=== PATIENT | male | born 1980 | race Caucasian/White ===

== ENCOUNTER 2017-06-26 17:37 | Emergency (ER) | payer BC, OTHER ==
[~2017-06-26] VITALS: Ht 190.5 cm; Wt 86.0 kg
[2017-06-26 17:43] VITALS: BP 106/90
[2017-06-26] MEDS ORDERED: SODIUM CHLORIDE 0.9% 1,000 ML IV ONE (17:47)
[2017-06-26] MEDS ORDERED: SODIUM CHLORIDE FLUSH 10ML SYR IVF ONE (18:00)
[2017-06-26 18:21] LABS: HEMATOCRIT 36.2 % (39.2-51.8); HEMOGLOBIN 11.7 g/dL (13.7-18.0); WHITE BLOOD COUNT 3.7 x10^3/uL (3.4-10)
[2017-06-26 18:27] LABS: ASPARTATE AMINO TRANSFERASE 80 U/L (15-37); BLOOD UREA NITROGEN 6 mg/dL (7-18)
[2017-06-26 18:45] LABS: DIFF TOTAL CELLS COUNTED 100 CELL DIFF
[2017-06-26 18:47] LABS: VERIFY COUNTS? YES
[2017-06-26 18:48] LABS: ANISOCYTOSIS 1+; OVALOCYTES 1+; POIKILOCYTOSIS 1+; ROULEAUX 1+; TARGET CELLS 1+
[2017-06-26] MEDS ORDERED: METOPROLOL 1 MG/ML, 5ML IVPush ONE (19:00)
== END 2017-06-26 20:45 | disposition home or self-care (01) ==
LOC: ED 20:39
DX: R53.1 Weakness (principal); F10.10 Alcohol abuse, uncomplicated; I10 Essential (primary) hypertension
CPT/HCPCS: 36415; 70450; 80053; 80307; 85025; 93005; 99285; G0479

== ENCOUNTER 2018-09-04 18:48 | Emergency (ER) | payer MEDICAID ==
[~2018-09-04] VITALS: Ht 190.5 cm; Wt 80.4 kg
[2018-09-04 19:54] LABS: ALANINE AMINOTRANSFERASE 45 U/L (12-78); ANION GAP 10 mmol/L (5-15); CALCIUM 8.4 mg/dL (8.5-10.1); CHLORIDE 104 mmol/L (98-107)
[2018-09-04 19:57] LABS: ALKALINE PHOSPHATASE 151 U/L (45-117); BILIRUBIN,TOTAL 5.7 mg/dL (0.2-1.0); TOTAL PROTEIN 7.9 g/dL (6.4-8.2)
[2018-09-04 20:11] LABS: MD YES; MEAN CORPUSCULAR HEMOGLOBIN 34.2 pg (27.5-34.5); MEAN CORPUSCULAR HGB CONC 34.1 g/dL (33.2-36.2); MEAN CORPUSCULAR VOLUME 100.3 fL (81-97); MEAN PLATELET VOLUME 8.8 fL (7.4-10.4); PLATELET COUNT 58 x10^3/uL (130-400); RED BLOOD COUNT 3.23 x10^6/uL (4.38-5.82); RED CELL DISTRIBUTION WIDTH 18.6 % (9.4-14.8)
[2018-09-04] MEDS ORDERED: LISI-167 PO (20:27)
[2018-09-04] MEDS ORDERED: FURO-93 PO (20:27)
[2018-09-04] MEDS ORDERED: LEVE750T37 PO (20:27)
[2018-09-04] MEDS ORDERED: AMLO2.5T3 PO (20:27)
[2018-09-04] MEDS ORDERED: SPIR25TA5 PO (20:27)
[2018-09-04 20:43] LABS: CULTURE INDICATED? YES; MICROSCOPIC INDICATED
[2018-09-04 20:52] LABS: INTERNATIONAL NORMALIZED RATIO 1.48 (0.93-1.1); PROTHROMBIN TIME 15.5 Seconds (9.6-11.5)
[2018-09-04 20:54] LABS: BASOS#(MANUAL) 0.03 x10^3/uL (0-0.1); BASOS% (MANUAL) 1 % (0-1); EOS#(MANUAL) 0.03 x10^3/uL (0.0-0.4); EOS% (MANUAL) 1 % (1-7); LYMPH#(MANUAL) 0.78 x10^3/uL (1-3.4); LYMPHS% (MANUAL) 30 % (22-44); MONOS#(MANUAL) 0.29 x10^3/uL (0.3-2.7); MONOS% (MANUAL) 11 % (2-9); SEG#(MANUAL) 1.48 x10^3/uL (1.8-6.8); SEGS% (MANUAL) 57 % (42-75)
[2018-09-04 20:57] LABS: POLYCHROMASIA 1+
[2018-09-04 20:58] LABS: OVALOCYTES 1+
[2018-09-04 20:59] LABS: SCHISTOCYTES 1+
[2018-09-04 21:02] LABS: <PLATELET ESTIMATE> DECREASED; <PLT MORPHOLOGY> NORMAL PLT MORPH
[2018-09-04 21:27] VITALS: BP 148/92
== END 2018-09-04 21:35 | disposition home or self-care (01) ==
LOC: ED 21:10
DX: K80.20 Calculus of gallbladder without cholecystitis without obstruction (principal); R10.11 Right upper quadrant pain; I10 Essential (primary) hypertension; Z86.73 Personal history of transient ischemic attack (TIA), and cerebral infarction without residual deficits
CPT/HCPCS: 36415; 76700; 80053; 81001; 83690; 85025; 85610; 85730; 87086; 99284

== ENCOUNTER 2018-11-15 05:35 | Inpatient (IN) | payer MEDICAID, OTHER ==
[~2018-11-15] VITALS: Ht 190.5 cm; Wt 88.1 kg
[~2018-11-15 05:35] MED LIST: AMLO2.5T5 PO; FURO-93 PO; LEVE750T37 PO; LISI-167 PO; SPIR25TA5 PO
[2018-11-15] MEDS ORDERED: LIDOCAINE-MPF 1%, 5ML ONE ×3 (06:16→06:37)
[2018-11-15 06:26] LABS: MEAN CORPUSCULAR HEMOGLOBIN 34.8 pg (27.5-34.5); MEAN CORPUSCULAR HGB CONC 33.5 g/dL (33.2-36.2); MEAN CORPUSCULAR VOLUME 104.1 fL (81-97); RED BLOOD COUNT 3.36 x10^6/uL (4.38-5.82); RED CELL DISTRIBUTION WIDTH 19.9 % (9.4-14.8)
[2018-11-15] MEDS ORDERED: LIDOCAINE-MPF 1%, 5ML INFIL ONE (06:30)
[2018-11-15 06:35] LABS: ALBUMIN 2.8 g/dL (3.4-5.0); ANION GAP 7 mmol/L (5-15); CALCIUM 8.5 mg/dL (8.5-10.1); CHLORIDE 111 mmol/L (98-107); INTERNATIONAL NORMALIZED RATIO 1.41 (0.93-1.1); PROTHROMBIN TIME 14.7 Seconds (9.6-11.5)
[2018-11-15 06:38] LABS: ALANINE AMINOTRANSFERASE 38 U/L (12-78); ALKALINE PHOSPHATASE 160 U/L (45-117); BILIRUBIN,TOTAL 5.6 mg/dL (0.2-1.0); CREATININE 0.96 mg/dL (0.7-1.3); TOTAL PROTEIN 7.6 g/dL (6.4-8.2)
[2018-11-15 06:40] LABS: BASOPHILS # (AUTO) 0.02 x10^3/uL (0-0.1); BASOPHILS % (AUTO) 1 % (0-1); EOSINOPHILS # (AUTO) 0.07 x10^3/uL (0-0.4); EOSINOPHILS % (AUTO) 2 % (1-7); LYMPHOCYTES # (AUTO) 0.92 x10^3/uL (1-3.4); LYMPHOCYTES % (AUTO) 28 % (22-44); MD SCAN; MEAN PLATELET VOLUME 8.2 fL (7.4-10.4); MONOCYTES # (AUTO) 0.38 x10^3/uL (0.2-0.8); MONOCYTES % (AUTO) 12 % (2-9); NEUTROPHILS # (AUTO) 1.91 x10^3/uL (1.8-6.8); NEUTROPHILS % (AUTO) 58 % (42-75); PLATELET COUNT 91 x10^3/uL (130-400)
[2018-11-15 08:53] LABS: BILIRUBIN, DIRECT 2.9 mg/dL (0.1-0.2)
[2018-11-15 08:54] LABS: BILIRUBIN,INDIRECT 2.4 mg/dL (0.0-2.0); BILIRUBIN,TOTAL 5.3 mg/dL (0.2-1.0)
[2018-11-15] MEDS ORDERED: VITAMIN D PO (08:59)
[2018-11-15] MEDS ORDERED: LEVETIRACETAM 100 MG/ML ORAL SOL PO SCH (09:00)
[2018-11-15] MEDS ORDERED: LABETALOL 5MG/ML, 20ML IVPush PRN (09:00)
[2018-11-15] MEDS ORDERED: hydrALAzine 20 MG/ML, 1ML IVPush PRN (09:00)
[2018-11-15] MEDS ORDERED: KETOROLAC 30 MG/1 ML IV PRN (09:00)
[2018-11-15] MEDS ORDERED: ACETAMINOPHEN 325 MG TABLET PO PRN (09:00)
[2018-11-15] MEDS ORDERED: VITAMIN K (09:01)
[2018-11-15] MEDS ORDERED: PRAZ2CAP2 PO (09:02)
[2018-11-15 09:34] VITALS: BP 112/77
[2018-11-15 10:04] LABS: AMPHETAMINE SCREEN, URINE Negative (Negative); BARBITURATE SCREEN, URINE Negative (Negative); BENZODIAZEPINE SCREEN, URINE Negative (Negative); CANNABINOID SCREEN, URINE Negative (Negative); COCAINE SCREEN, URINE Negative (Negative); METHADONE SCREEN, URINE Negative (Negative); OPIATE SCREEN, URINE Negative (Negative)
[2018-11-15] MEDS ORDERED: LORazepam 2 MG/ML, 1ML ONE (10:26)
[2018-11-15] MEDS: LISINOPRIL 10 MG TABLET PO SCH (10:29)
[2018-11-15] MEDS ORDERED: ERGOCALCIFEROL 50,000 UNIT CAPSULE PO SCH (10:30)
[2018-11-15] MEDS ORDERED: LORazepam 2 MG/ML, 1ML IVPush ONE ×2 (10:30)
[2018-11-15] MEDS ORDERED: LIDO700A42 TP (10:43)
[2018-11-15] MEDS ORDERED: FOLI-17 PO (10:43)
[2018-11-15] MEDS ORDERED: LEVE750T8 PO (10:43)
[2018-11-15] MEDS ORDERED: LACT10SO28 PO (10:43)
[2018-11-15] MEDS ORDERED: PROP10TA51 PO (10:44)
[2018-11-15] MEDS ORDERED: ONDA4TAB13 SL (10:45)
[2018-11-15] MEDS ORDERED: OMEP-110 PO (10:46)
[2018-11-15] MEDS ORDERED: MULT-658 PO (10:47)
[2018-11-15] MEDS: AMLODIPINE 2.5 MG TABLET PO SCH (12:16)
[2018-11-15] MEDS: SODIUM CHLORIDE 0.9% 1,000 ML IV SCH (12:16)
[2018-11-15] MEDS: THIAMINE 100MG TABLET PO SCH (13:00)
[2018-11-15] MEDS ORDERED: CEFTRIAXONE PMX 2GM/50ML 50 ML IV SCH (13:30)
[2018-11-15] MEDS: METRONIDAZOLE PMX 500MG/100ML 100 ML IV SCH (14:08)
[2018-11-15 14:38] VITALS: BP 115/78
[2018-11-15] MEDS: HYDROcodone/APAP 5/325 TABLET PO PRN (16:20)
[2018-11-15] MEDS: AZTREONAM 2 GM in DEXTROSE 5% 100 ML IV SCH ×2 (18:09→23:58)
[2018-11-15] MEDS ORDERED: VANCOMYCIN PER PHARMACY MC PRN (19:00)
[2018-11-15] MEDS ORDERED: PHARMACOKINETIC CONSULTATION MC ONE (19:00)
[2018-11-15] MEDS ORDERED: PHARMACOKINETIC MONITORING MC PRN (19:00)
[2018-11-15] MEDS: VANCOMYCIN 1,600 MG in SODIUM CHLORIDE 0.9% 250 ML IV SCH (20:09)
[2018-11-15] MEDS: KETOROLAC 30 MG/1 ML IV PRN (20:10)
[2018-11-15] MEDS: morphine SULFATE 10 MG/ML, 1ML IVPush PRN ×2 (20:10→23:57)
[2018-11-15 20:12] VITALS: BP 124/78
[2018-11-15] MEDS: LEVETIRACETAM 100 MG/ML ORAL SOL PO SCH (23:21)
[2018-11-15] MEDS: PRAZOSIN 2 MG CAPSULE PO SCH (23:23)
[2018-11-16] MEDS: METRONIDAZOLE PMX 500MG/100ML 100 ML IV SCH ×2 (01:25→12:54)
[2018-11-16] MEDS: SODIUM CHLORIDE 0.9% 1,000 ML IV SCH ×3 (01:26→22:21)
[2018-11-16 02:20] VITALS: BP 117/72
[2018-11-16] MEDS: KETOROLAC 30 MG/1 ML IV PRN ×3 (04:15→22:32)
[2018-11-16] MEDS: morphine SULFATE 10 MG/ML, 1ML IVPush PRN ×4 (04:15→21:16)
[2018-11-16 04:38] LABS: MEAN CORPUSCULAR HEMOGLOBIN 35.3 pg (27.5-34.5); MEAN CORPUSCULAR HGB CONC 34.5 g/dL (33.2-36.2); MEAN CORPUSCULAR VOLUME 102.4 fL (81-97); MEAN PLATELET VOLUME 7.9 fL (7.4-10.4); PLATELET COUNT 65 x10^3/uL (130-400); RED BLOOD COUNT 2.79 x10^6/uL (4.38-5.82); RED CELL DISTRIBUTION WIDTH 20.7 % (9.4-14.8)
[2018-11-16 04:44] LABS: ALANINE AMINOTRANSFERASE 30 U/L (12-78); ALBUMIN 2.4 g/dL (3.4-5.0); ANION GAP 7 mmol/L (5-15); CALCIUM 7.7 mg/dL (8.5-10.1); CHLORIDE 111 mmol/L (98-107); CREATININE 0.76 mg/dL (0.7-1.3)
[2018-11-16 05:11] LABS: ALKALINE PHOSPHATASE 100 U/L (45-117); BILIRUBIN,TOTAL 5.3 mg/dL (0.2-1.0); TOTAL PROTEIN 6.2 g/dL (6.4-8.2)
[2018-11-16 05:40] LABS: BASOPHILS # (AUTO) 0.03 x10^3/uL (0-0.1); BASOPHILS % (AUTO) 1 % (0-1); EOSINOPHILS # (AUTO) 0.05 x10^3/uL (0-0.4); EOSINOPHILS % (AUTO) 2 % (1-7); LYMPHOCYTES # (AUTO) 0.65 x10^3/uL (1-3.4); LYMPHOCYTES % (AUTO) 31 % (22-44); MD SCAN; MONOCYTES # (AUTO) 0.32 x10^3/uL (0.2-0.8); MONOCYTES % (AUTO) 15 % (2-9); NEUTROPHILS # (AUTO) 1.08 x10^3/uL (1.8-6.8); NEUTROPHILS % (AUTO) 51 % (42-75)
[2018-11-16 07:13] VITALS: BP 123/74
[2018-11-16] MEDS: LEVETIRACETAM 100 MG/ML ORAL SOL PO SCH ×2 (08:20→22:33)
[2018-11-16] MEDS: LISINOPRIL 10 MG TABLET PO SCH (08:20)
[2018-11-16] MEDS: THIAMINE 100MG TABLET PO SCH (08:20)
[2018-11-16] MEDS: AMLODIPINE 2.5 MG TABLET PO SCH (08:20)
[2018-11-16] MEDS: AZTREONAM 2 GM in DEXTROSE 5% 100 ML IV SCH (08:20)
[2018-11-16] MEDS: FOLIC ACID 1 MG TABLET PO SCH (08:21)
[2018-11-16 09:28] LABS: C-REACTIVE PROTEIN, QUANT 0.03 mg/dL (0.02-0.49)
[2018-11-16] MEDS: VANCOMYCIN 1,600 MG in SODIUM CHLORIDE 0.9% 250 ML IV SCH (09:28)
[2018-11-16 09:29] LABS: HCT (SEDRATE) 28.6 % (39.2-51.8)
[2018-11-16] MEDS ORDERED: LORazepam 2 MG/ML, 1ML IVPush ONE (10:00)
[2018-11-16] MEDS ORDERED: GADOBUTROL 7.5 MMOL/7.5 ML PFS ONE (11:43)
[2018-11-16] MEDS: ONDANSETRON 2MG/ML, 2ML IVPush PRN (12:14)
[2018-11-16] MEDS: HYDROcodone/APAP 5/325 TABLET PO PRN (14:10)
[2018-11-16 14:44] VITALS: BP 109/64
[2018-11-16] MEDS ORDERED: LORazepam 2 MG/ML, 1ML ONE (15:41)
[2018-11-16 15:44] VITALS: BP 153/97
[2018-11-16] MEDS ORDERED: LORazepam 2 MG/ML, 1ML IVPush PRN ×2 (16:00)
[2018-11-16] MEDS: CLINDAMYCIN 300 MG CAPSULE PO SCH ×2 (16:05→21:17)
[2018-11-16 20:30] VITALS: BP 108/78
[2018-11-16] MEDS: PRAZOSIN 2 MG CAPSULE PO SCH (21:16)
[2018-11-17 00:34] VITALS: BP 102/58
[2018-11-17] MEDS: morphine SULFATE 10 MG/ML, 1ML IVPush PRN ×2 (05:02→10:49)
[2018-11-17] MEDS: CLINDAMYCIN 300 MG CAPSULE PO SCH ×4 (05:02→21:04)
[2018-11-17 06:57] VITALS: BP 117/76
[2018-11-17 08:05] LABS: MEAN CORPUSCULAR HEMOGLOBIN 34.2 pg (27.5-34.5); MEAN CORPUSCULAR VOLUME 103.7 fL (81-97); RED BLOOD COUNT 2.74 x10^6/uL (4.38-5.82); RED CELL DISTRIBUTION WIDTH 20.5 % (9.4-14.8)
[2018-11-17 08:11] LABS: ANION GAP 8 mmol/L (5-15); CALCIUM 7.7 mg/dL (8.5-10.1); CHLORIDE 114 mmol/L (98-107); CREATININE 0.83 mg/dL (0.7-1.3)
[2018-11-17] MEDS: THIAMINE 100MG TABLET PO SCH (08:11)
[2018-11-17] MEDS: AMLODIPINE 2.5 MG TABLET PO SCH (08:11)
[2018-11-17] MEDS: LISINOPRIL 10 MG TABLET PO SCH (08:11)
[2018-11-17] MEDS: HYDROcodone/APAP 5/325 TABLET PO PRN ×3 (08:11→20:29)
[2018-11-17] MEDS: FOLIC ACID 1 MG TABLET PO SCH (08:11)
[2018-11-17 08:12] LABS: VANCOMYCIN,TROUGH 4.5 mcg/mL (5.0-10.0)
[2018-11-17] MEDS: LEVETIRACETAM 100 MG/ML ORAL SOL PO SCH ×2 (08:12→21:03)
[2018-11-17 09:25] LABS: MEAN PLATELET VOLUME 8.1 fL (7.4-10.4)
[2018-11-17 09:30] LABS: MD YES; PLATELET COUNT 45 x10^3/uL (130-400)
[2018-11-17 09:35] LABS: BAND#(MANUAL) 0.03 x10^3/uL; BANDS%(MANUAL) 2 % (0-7); BASOS#(MANUAL) 0.03 x10^3/uL (0-0.1); BASOS% (MANUAL) 2 % (0-1); EOS#(MANUAL) 0.02 x10^3/uL (0.0-0.4); EOS% (MANUAL) 1 % (1-7); LYMPH#(MANUAL) 0.51 x10^3/uL (1-3.4); LYMPHS% (MANUAL) 32 % (22-44); MONOS#(MANUAL) 0.14 x10^3/uL (0.3-2.7); MONOS% (MANUAL) 9 % (2-9); SEG#(MANUAL) 0.86 x10^3/uL (1.8-6.8); SEGS% (MANUAL) 54 % (42-75)
[2018-11-17 09:39] LABS: ANISOCYTOSIS 1+; POLYCHROMASIA 1+
[2018-11-17 09:40] LABS: <PLATELET ESTIMATE> DECREASED; <PLT MORPHOLOGY> NORMAL PLT MORPH; OVALOCYTES 1+
[2018-11-17] MEDS ORDERED: MORPHINE SULFATE 4 MG/ML, 1ML ONE (10:23)
[2018-11-17] MEDS ORDERED: SODIUM CHLORIDE 0.9% 1,000ML IVBOLUS ONE (11:30)
[2018-11-17 13:24] VITALS: BP 115/74
[2018-11-17] MEDS: KETOROLAC 30 MG/1 ML IV PRN (14:17)
[2018-11-17] MEDS: SODIUM CHLORIDE 0.9% 1,000 ML IV SCH (14:17)
[2018-11-17 20:27] VITALS: BP 121/71
[2018-11-17] MEDS: PRAZOSIN 2 MG CAPSULE PO SCH (20:29)
[2018-11-17] MEDS: ONDANSETRON 2MG/ML, 2ML IVPush PRN (21:04)
[2018-11-17] MEDS ORDERED: OMNIPAQUE 350 MG/ML, 100ML BOTTLE ONE (23:30)
[2018-11-18 01:10] VITALS: BP 105/65
[2018-11-18] MEDS ORDERED: HYDROmorphone 2 MG/ML, 1ML ONE (01:55)
[2018-11-18] MEDS ORDERED: HYDROmorphone 1 MG/ML, 1ML IV ONE (02:00)
[2018-11-18] MEDS: CLINDAMYCIN 300 MG CAPSULE PO SCH ×3 (04:07→16:25)
[2018-11-18 08:28] VITALS: BP 98/65
[2018-11-18 08:57] LABS: ANION GAP 9 mmol/L (5-15); CALCIUM 8.4 mg/dL (8.5-10.1); CHLORIDE 111 mmol/L (98-107); CREATININE 0.83 mg/dL (0.7-1.3)
[2018-11-18] MEDS: THIAMINE 100MG TABLET PO SCH (09:00)
[2018-11-18 09:31] LABS: MEAN CORPUSCULAR HEMOGLOBIN 34.5 pg (27.5-34.5); MEAN CORPUSCULAR HGB CONC 33.4 g/dL (33.2-36.2); MEAN CORPUSCULAR VOLUME 103.3 fL (81-97); RED CELL DISTRIBUTION WIDTH 20.2 % (9.4-14.8)
[2018-11-18 09:33] LABS: PLATELET COUNT 53 x10^3/uL (130-400)
[2018-11-18 09:34] LABS: BASOPHILS # (AUTO) 0.01 x10^3/uL (0-0.1); BASOPHILS % (AUTO) 1 % (0-1); EOSINOPHILS # (AUTO) 0.03 x10^3/uL (0-0.4); EOSINOPHILS % (AUTO) 1 % (1-7); LYMPHOCYTES # (AUTO) 0.57 x10^3/uL (1-3.4); LYMPHOCYTES % (AUTO) 22 % (22-44); MD SCAN; MEAN PLATELET VOLUME 7.8 fL (7.4-10.4); MONOCYTES # (AUTO) 0.17 x10^3/uL (0.2-0.8); MONOCYTES % (AUTO) 7 % (2-9); NEUTROPHILS # (AUTO) 1.78 x10^3/uL (1.8-6.8); NEUTROPHILS % (AUTO) 69 % (42-75)
[2018-11-18] MEDS: HYDROcodone/APAP 5/325 TABLET PO PRN ×2 (10:01→16:26)
[2018-11-18] MEDS: AMLODIPINE 2.5 MG TABLET PO SCH (10:01)
[2018-11-18] MEDS: FOLIC ACID 1 MG TABLET PO SCH (10:01)
[2018-11-18] MEDS: LISINOPRIL 10 MG TABLET PO SCH (10:02)
[2018-11-18] MEDS: LEVETIRACETAM 100 MG/ML ORAL SOL PO SCH (10:03)
[2018-11-18] MEDS ORDERED: LORazepam 2 MG/ML, 1ML IVPush ONE (10:30)
[2018-11-18] MEDS ORDERED: GADOBUTROL 10 MMOL/10 ML PFS ONE (10:46)
[2018-11-18] MEDS ORDERED: LEVE100S PO (11:43)
[2018-11-18] MEDS ORDERED: CLIN300C8 PO (11:43)
[2018-11-18 14:20] VITALS: BP 106/63
[2018-11-18] MEDS ORDERED: KETOROLAC 30 MG/1 ML IVPush PRN (16:30)
== END 2018-11-18 22:33 | disposition home or self-care (01) | DRG 438 ==
LOC: ED 08:07 → 3NW 08:39 → 4WST 11-16 18:40
PROVIDERS: ADMIT Hospitalist; ATTEND Hospitalist
DX: K85.10 Biliary acute pancreatitis without necrosis or infection (principal); K72.00 Acute and subacute hepatic failure without coma; D61.818 Other pancytopenia; K76.6 Portal hypertension; L02.413 Cutaneous abscess of right upper limb; K80.20 Calculus of gallbladder without cholecystitis without obstruction; B19.20 Unspecified viral hepatitis C without hepatic coma; G40.909 Epilepsy, unspecified, not intractable, without status epilepticus; I10 Essential (primary) hypertension; K74.60 Unspecified cirrhosis of liver; Y04.0XXA Assault by unarmed brawl or fight, initial encounter; Z86.73 Personal history of transient ischemic attack (TIA), and cerebral infarction without residual deficits
CPT/HCPCS: 10060; 36415; 70553; 71045; 71275; 74181; 76700; 80048; 80053; 80074; 80177; 80202; 80307; 82247; 82248; 82607; 83605; 83690; 83735; 84100; 84145; 84443; 85025; 85379; 85610; 85651; 85730; 86140; 87040; 87070; 87205; 87521; 95819; A9585; G0378; J1170; J1885; J2405; J3370; Q9967; J2060; J2270; J7030; J7050

== ENCOUNTER 2018-11-20 22:17 | Emergency (ER) | payer MEDICAID, OTHER ==
[~2018-11-20] VITALS: Ht 190.5 cm; Wt 82.0 kg
[~2018-11-20 22:17] MED LIST changes: +CLIN300C8 PO; +FOLI-17 PO; +LACT10SO28 PO; +LEVE100S PO; +LEVE750T8 PO; +LIDO700A42 TP; +MULT-658 PO; +OMEP-110 PO; +ONDA4TAB13 SL; +PRAZ2CAP2 PO; +PROP10TA51 PO; +VITAMIN D PO; +VITAMIN K
--- NOTE | 2018-11-21 00:42 | NUR ---
PT AMBULATED FROM LOBBY TO ROOM WITH STEADY GAIT.
[2018-11-21] MEDS ORDERED: ONDANSETRON 2MG/ML, 2ML ONE (01:19)
[2018-11-21] MEDS ORDERED: PANTOPRAZOLE 40 MG IV ONE (01:19)
[2018-11-21] MEDS ORDERED: ONDANSETRON 2MG/ML, 2ML IVPush ONE (01:30)
[2018-11-21] MEDS ORDERED: SODIUM CHLORIDE 0.9% 1,000ML IVBOLUS ONE (01:30)
[2018-11-21] MEDS ORDERED: PANTOPRAZOLE 20MG TABLET PO ONE (01:30)
--- NOTE | 2018-11-21 01:31 | NUR ---
FIRST PT CONTACT, PT APPARENTLY CAME IN VIA AMBUALNCE WITH COMPLAINTS OF ARM PAIN RELATED TO PROCEDURE DONE AT [facility], PT STATES THAT THEY ARE INCOMITENT THERE. CHIEF COMPLAINT TO NICOLESA WAS REGARDING THIS ARM PAIN, NOW STATES THAT HE VOMITIED BLOOD AND HAD A SEIZURE EARLIER WELL. STATES THAT HE IS COMPLIANT WITH HIS MEDICATIONS. PT MAKES STATEMENTS INDICATING THAT OTHERS ARE RESPONSIBLE FOR HIS PROBLEMS. IV START BY Isaura PATTEN RN AND LABS DRAWN, FLUIDS AND MEDS GIVEN
[2018-11-21] MEDS ORDERED: PANTOPRAZOLE 20MG TABLET ONE ×2 (01:40→01:41)
[2018-11-21 01:47] LABS: MEAN CORPUSCULAR HEMOGLOBIN 35.1 pg (27.5-34.5); MEAN CORPUSCULAR HGB CONC 33.9 g/dL (33.2-36.2); MEAN CORPUSCULAR VOLUME 103.5 fL (81-97); RED BLOOD COUNT 3.16 x10^6/uL (4.38-5.82); RED CELL DISTRIBUTION WIDTH 20.9 % (9.4-14.8)
--- NOTE | 2018-11-21 01:47 | NUR ---
PT IN US AT THIS TIME
[2018-11-21 01:54] LABS: ALANINE AMINOTRANSFERASE 40 U/L (12-78); ALBUMIN 2.9 g/dL (3.4-5.0); ANION GAP 5 mmol/L (5-15); C-REACTIVE PROTEIN, QUANT 0.04 mg/dL (0.02-0.49); CHLORIDE 114 mmol/L (98-107); CREATININE 0.75 mg/dL (0.7-1.3)
[2018-11-21 01:57] LABS: ALKALINE PHOSPHATASE 160 U/L (45-117); TOTAL PROTEIN 7.9 g/dL (6.4-8.2)
[2018-11-21 02:02] LABS: PLATELET COUNT 68 x10^3/uL (130-400)
[2018-11-21 02:03] LABS: BASOPHILS # (AUTO) 0.18 x10^3/uL (0-0.1); BASOPHILS % (AUTO) 6 % (0-1); EOSINOPHILS # (AUTO) 0.06 x10^3/uL (0-0.4); EOSINOPHILS % (AUTO) 2 % (1-7); LYMPHOCYTES # (AUTO) 0.82 x10^3/uL (1-3.4); LYMPHOCYTES % (AUTO) 26 % (22-44); MD SCAN; MONOCYTES # (AUTO) 0.42 x10^3/uL (0.2-0.8); MONOCYTES % (AUTO) 13 % (2-9); NEUTROPHILS # (AUTO) 1.68 x10^3/uL (1.8-6.8); NEUTROPHILS % (AUTO) 53 % (42-75)
--- NOTE | 2018-11-21 02:24 | NUR ---
RETURN FROM US, ATTEMTPING TO GET RECORDS FROM [facility].
[2018-11-21] MEDS ORDERED: LIDOCAINE-MPF 1%, 5ML INFIL ONE (02:30)
[2018-11-21 02:34] VITALS: BP 111/59
[2018-11-21 02:55] LABS: HCT (SEDRATE) 32.8 % (39.2-51.8)
== END 2018-11-21 03:17 | disposition home or self-care (01) ==
LOC: ED 11-21 01:04
DX: L02.413 Cutaneous abscess of right upper limb (principal); K80.20 Calculus of gallbladder without cholecystitis without obstruction; R11.2 Nausea with vomiting, unspecified; R10.11 Right upper quadrant pain; I10 Essential (primary) hypertension; Z86.73 Personal history of transient ischemic attack (TIA), and cerebral infarction without residual deficits
CPT/HCPCS: 36415; 73090; 76700; 80053; 83605; 83690; 85025; 85651; 86140; 93005; 96361; 96374; 99284; J2405; J7030

== ENCOUNTER 2018-12-09 07:38 | Emergency (ER) | payer OTHER ==
[~2018-12-09] VITALS: Ht 190.5 cm; Wt 75.0 kg
--- NOTE | 2018-12-09 07:47 | NUR ---
PT BIB [facility] AFTER WALKING HOME FROM [facility] WHERE HE WAS SEEN FOR A RIGHT ARM STAPH INFECTION. PT UP AMBULATORY WITH C-COLLAR ON. PT A&OX4. PT STATES HE HIT HIS HEAD ON THE LAMP POST. PT STATES HE HIT THE BACK OF HIS HEAD. PT PLACED ON BP AND CONT. PULSE OXIMETER. ASSESSMENT COMPLETED. PA AT BEDSIDE.
[2018-12-09] MEDS ORDERED: SODIUM CHLORIDE FLUSH 10ML SYR IVF ONE (08:00)
[2018-12-09] MEDS ORDERED: PLEASE ENTER HEIGHT AND WEIGHT MC SCH (08:00)
[2018-12-09 08:40] LABS: ALBUMIN 2.9 g/dL (3.4-5.0); ANION GAP 8 mmol/L (5-15); CALCIUM 8.3 mg/dL (8.5-10.1); CHLORIDE 107 mmol/L (98-107)
[2018-12-09 08:43] LABS: ALANINE AMINOTRANSFERASE 49 U/L (12-78); ALKALINE PHOSPHATASE 153 U/L (45-117); BILIRUBIN,TOTAL 3.4 mg/dL (0.2-1.0); CREATININE 0.93 mg/dL (0.7-1.3); TOTAL PROTEIN 7.3 g/dL (6.4-8.2)
[2018-12-09 08:54] LABS: BASOPHILS # (AUTO) 0.03 x10^3/uL (0-0.1); BASOPHILS % (AUTO) 1 % (0-1); EOSINOPHILS # (AUTO) 0.05 x10^3/uL (0-0.4); EOSINOPHILS % (AUTO) 2 % (1-7); LYMPHOCYTES % (AUTO) 37 % (22-44); MD SCAN; MEAN CORPUSCULAR HEMOGLOBIN 32.8 pg (27.5-34.5); MEAN CORPUSCULAR HGB CONC 33.1 g/dL (33.2-36.2); MEAN CORPUSCULAR VOLUME 99.2 fL (81-97); MEAN PLATELET VOLUME 8.4 fL (7.4-10.4); MONOCYTES # (AUTO) 0.32 x10^3/uL (0.2-0.8); MONOCYTES % (AUTO) 13 % (2-9); NEUTROPHILS # (AUTO) 1.18 x10^3/uL (1.8-6.8); NEUTROPHILS % (AUTO) 48 % (42-75); PLATELET COUNT 69 x10^3/uL (130-400); RED BLOOD COUNT 3.07 x10^6/uL (4.38-5.82); RED CELL DISTRIBUTION WIDTH 18.2 % (9.4-14.8)
--- NOTE | 2018-12-09 09:00 | NUR ---
PT RESTING IN BED AND ON THE PHONE.
[2018-12-09 09:03] VITALS: BP 126/76
--- NOTE | 2018-12-09 09:53 | NUR ---
PT LEFT PRIOR TO GIVING DISCHARGE INSTRUCTIONS.
== END 2018-12-09 09:58 | disposition home or self-care (01) ==
LOC: ED 09:16
DX: M54.2 Cervicalgia (principal); G40.909 Epilepsy, unspecified, not intractable, without status epilepticus; R51 Headache; I10 Essential (primary) hypertension; G89.29 Other chronic pain; Z86.73 Personal history of transient ischemic attack (TIA), and cerebral infarction without residual deficits
CPT/HCPCS: 36415; 70450; 72072; 72125; 80053; 80307; 85025; 93005; 99284

== ENCOUNTER 2018-12-12 17:29 | Emergency (ER) | payer MEDICAID, OTHER ==
[~2018-12-12] VITALS: Ht 190.5 cm; Wt 82.0 kg
--- NOTE | 2018-12-12 18:49 | NUR ---
PT TAKEN TO US AT THIS TIME.
[2018-12-12 19:34] LABS: ALBUMIN 2.9 g/dL (3.4-5.0); ANION GAP 5 mmol/L (5-15); CALCIUM 7.5 mg/dL (8.5-10.1); CHLORIDE 114 mmol/L (98-107)
[2018-12-12 19:38] LABS: ALANINE AMINOTRANSFERASE 52 U/L (12-78); ALKALINE PHOSPHATASE 141 U/L (45-117); BILIRUBIN,TOTAL 3.2 mg/dL (0.2-1.0); MEAN CORPUSCULAR HEMOGLOBIN 33.5 pg (27.5-34.5); MEAN CORPUSCULAR HGB CONC 34.2 g/dL (33.2-36.2); MEAN CORPUSCULAR VOLUME 98.1 fL (81-97); MEAN PLATELET VOLUME 8.5 fL (7.4-10.4); PLATELET COUNT 68 x10^3/uL (130-400); RED BLOOD COUNT 3.14 x10^6/uL (4.38-5.82); RED CELL DISTRIBUTION WIDTH 18.6 % (9.4-14.8); TOTAL PROTEIN 7.2 g/dL (6.4-8.2)
[2018-12-12 20:13] LABS: BASOPHILS # (AUTO) 0.04 x10^3/uL (0-0.1); BASOPHILS % (AUTO) 2 % (0-1); EOSINOPHILS # (AUTO) 0.03 x10^3/uL (0-0.4); EOSINOPHILS % (AUTO) 1 % (1-7); LYMPHOCYTES # (AUTO) 0.69 x10^3/uL (1-3.4); LYMPHOCYTES % (AUTO) 28 % (22-44); MD SCAN; MONOCYTES # (AUTO) 0.29 x10^3/uL (0.2-0.8); MONOCYTES % (AUTO) 12 % (2-9); NEUTROPHILS % (AUTO) 57 % (42-75)
[2018-12-12] MEDS ORDERED: MAALOX/HYOSCYAMINE/LIDOCAINE 45 ML BTL ONE (20:15)
[2018-12-12] MEDS ORDERED: ONDANSETRON ODT 4 MG ONE (20:15)
[2018-12-12 20:18] VITALS: BP 123/82
--- NOTE | 2018-12-12 20:19 | NUR ---
PT MEDICATED PER EMAR. PT NODDING IN AND OUT OF SLEEP AT THIS TIME. VSS.
[2018-12-12] MEDS ORDERED: ONDANSETRON ODT 4 MG PO ONE (20:30)
[2018-12-12] MEDS ORDERED: MAALOX/HYOSCYAMINE/LIDOCAINE 45 ML BTL PO ONE (20:30)
== END 2018-12-12 21:08 | disposition home or self-care (01) ==
LOC: ED 21:00
DX: K80.20 Calculus of gallbladder without cholecystitis without obstruction (principal); K70.30 Alcoholic cirrhosis of liver without ascites; D64.9 Anemia, unspecified; I10 Essential (primary) hypertension; Z86.73 Personal history of transient ischemic attack (TIA), and cerebral infarction without residual deficits
CPT/HCPCS: 36415; 76700; 80053; 83690; 85025; 99284; Q0162

== ENCOUNTER 2018-12-18 18:25 | Emergency (ER) | payer MEDICAID ==
[~2018-12-18] VITALS: Ht 190.5 cm; Wt 81.3 kg
[2018-12-18 18:51] VITALS: BP 112/72
[2018-12-18 19:38] LABS: ALANINE AMINOTRANSFERASE 42 U/L (12-78); ALBUMIN 3.4 g/dL (3.4-5.0); ANION GAP 6 mmol/L (5-15); CHLORIDE 111 mmol/L (98-107); CREATININE 1.24 mg/dL (0.7-1.3)
[2018-12-18 19:39] LABS: MEAN CORPUSCULAR HEMOGLOBIN 33.2 pg (27.5-34.5); MEAN CORPUSCULAR HGB CONC 34.1 g/dL (33.2-36.2); MEAN CORPUSCULAR VOLUME 97.4 fL (81-97); MEAN PLATELET VOLUME 9.9 fL (7.4-10.4); PLATELET COUNT 66 x10^3/uL (130-400); RED BLOOD COUNT 3.66 x10^6/uL (4.38-5.82); RED CELL DISTRIBUTION WIDTH 18.4 % (9.4-14.8)
[2018-12-18 19:41] LABS: ALKALINE PHOSPHATASE 143 U/L (45-117); BILIRUBIN,TOTAL 3.1 mg/dL (0.2-1.0); TOTAL PROTEIN 8.2 g/dL (6.4-8.2)
[2018-12-18 20:10] LABS: MD YES
[2018-12-18 20:18] LABS: BASOS#(MANUAL) 0.02 x10^3/uL (0-0.1); BASOS% (MANUAL) 1 % (0-1); EOS#(MANUAL) 0.07 x10^3/uL (0.0-0.4); EOS% (MANUAL) 3 % (1-7); LYMPH#(MANUAL) 0.81 x10^3/uL (1-3.4); LYMPHS% (MANUAL) 37 % (22-44); MONOS#(MANUAL) 0.35 x10^3/uL (0.3-2.7); MONOS% (MANUAL) 16 % (2-9); SEG#(MANUAL) 0.95 x10^3/uL (1.8-6.8); SEGS% (MANUAL) 43 % (42-75)
[2018-12-18 20:20] LABS: <PLATELET ESTIMATE> DECREASED; <PLT MORPHOLOGY> NORMAL PLT MORPH; OVALOCYTES 1+; SCHISTOCYTES 1+
[2018-12-18 20:22] LABS: TEAR DROPS 1+
--- NOTE | 2018-12-18 20:36 | NUR ---
friend requesting for pt to speak with md regard. his pain. md made aware. pt brought to attention that he has his gi doctor on the phone and his gi doctor from [facility] the fiction and nonfiction writer prose doctor. this rn spoke with the md and was informed to instruct pt to have the doctor call this er to speak with provider.
--- NOTE | 2018-12-18 22:11 | NUR ---
report of pt from broderick cantu and assuming care of pt at this time.
== END 2018-12-18 22:38 | disposition home or self-care (01) ==
LOC: ED 19:53
DX: K80.20 Calculus of gallbladder without cholecystitis without obstruction (principal); I10 Essential (primary) hypertension; Z86.73 Personal history of transient ischemic attack (TIA), and cerebral infarction without residual deficits
CPT/HCPCS: 36415; 76700; 80053; 80307; 82140; 83690; 85025; 93005; 99284

== ENCOUNTER 2018-12-20 01:43 | Emergency (ER) | payer MEDICAID ==
[~2018-12-20] VITALS: Ht 190.5 cm; Wt 83.0 kg
[2018-12-20 01:44] VITALS: BP 108/49
== END 2018-12-20 03:46 | disposition home or self-care (01) ==
LOC: ED 03:40
DX: K80.51 Calculus of bile duct without cholangitis or cholecystitis with obstruction (principal); K80.20 Calculus of gallbladder without cholecystitis without obstruction; I10 Essential (primary) hypertension; Z86.73 Personal history of transient ischemic attack (TIA), and cerebral infarction without residual deficits; Z88.0 Allergy status to penicillin; Z88.5 Allergy status to narcotic agent; Z88.9 Allergy status to unspecified drugs, medicaments and biological substances
CPT/HCPCS: 99283

== ENCOUNTER 2018-12-24 23:06 | Emergency (ER) | payer MEDICAID ==
[~2018-12-24] VITALS: Ht 190.5 cm; Wt 78.3 kg
[2018-12-24 23:57] LABS: MEAN CORPUSCULAR HGB CONC 34.4 g/dL (33.2-36.2); MEAN CORPUSCULAR VOLUME 96.1 fL (81-97); RED BLOOD COUNT 3.61 x10^6/uL (4.38-5.82); RED CELL DISTRIBUTION WIDTH 16.9 % (9.4-14.8)
[2018-12-25 00:01] LABS: ALANINE AMINOTRANSFERASE 53 U/L (12-78); ALBUMIN 3.6 g/dL (3.4-5.0); ANION GAP 10 mmol/L (5-15); CHLORIDE 104 mmol/L (98-107); CREATININE 1.65 mg/dL (0.7-1.3)
[2018-12-25 00:03] LABS: ALKALINE PHOSPHATASE 122 U/L (45-117); BILIRUBIN,TOTAL 4.2 mg/dL (0.2-1.0); TOTAL PROTEIN 8.3 g/dL (6.4-8.2)
[2018-12-25 00:09] LABS: BASOPHILS # (AUTO) 0.06 x10^3/uL (0-0.1); BASOPHILS % (AUTO) 1 % (0-1); EOSINOPHILS # (AUTO) 0.05 x10^3/uL (0-0.4); EOSINOPHILS % (AUTO) 1 % (1-7); LYMPHOCYTES # (AUTO) 1.12 x10^3/uL (1-3.4); LYMPHOCYTES % (AUTO) 22 % (22-44); MD SCAN; MEAN PLATELET VOLUME 10.8 fL (7.4-10.4); MONOCYTES # (AUTO) 0.56 x10^3/uL (0.2-0.8); MONOCYTES % (AUTO) 11 % (2-9); NEUTROPHILS # (AUTO) 3.26 x10^3/uL (1.8-6.8); NEUTROPHILS % (AUTO) 65 % (42-75); PLATELET COUNT 82 x10^3/uL (130-400)
--- NOTE | 2018-12-25 00:40 | NUR ---
Report to Jenny CHANCE
[2018-12-25 00:54] VITALS: BP 99/55
[2018-12-25] MEDS ORDERED: SODIUM CHLORIDE 0.9% 1,000ML IVBOLUS ONE (01:00)
--- NOTE | 2018-12-25 01:16 | NUR ---
IV FLUIDS ORDERED ON WRONG PT; PER DR. CALHOUN NO IVF TO BE ADMIN ON THIS PT.
== END 2018-12-25 01:12 | disposition home or self-care (01) ==
LOC: ED 23:39
DX: S06.0X1A Concussion with loss of consciousness of 30 minutes or less, initial encounter (principal); S16.1XXA Strain of muscle, fascia and tendon at neck level, initial encounter; R55 Syncope and collapse; I10 Essential (primary) hypertension; Z86.73 Personal history of transient ischemic attack (TIA), and cerebral infarction without residual deficits; Z72.9 Problem related to lifestyle, unspecified; X58.XXXA Exposure to other specified factors, initial encounter; Y93.89 Activity, other specified; Y92.89 Other specified places as the place of occurrence of the external cause; Y99.8 Other external cause status
CPT/HCPCS: 70450; 72125; 80053; 80307; 82962; 85025; 93005; 99284

== ENCOUNTER 2018-12-26 02:19 | Emergency (ER) | payer MEDICAID ==
[~2018-12-26] VITALS: Ht 190.5 cm; Wt 77.0 kg
[2018-12-26 02:25] VITALS: BP 167/82
--- NOTE | 2018-12-26 02:31 | NUR ---
PT TO CT
--- NOTE | 2018-12-26 02:48 | NUR ---
PT BACK FROM CT
--- NOTE | 2018-12-26 03:58 | NUR ---
Patient/Caregiver given discharge instructions and they have confirmed that they understand the instructions. Patient ambulatory with steady gait.
== END 2018-12-26 04:00 | disposition home or self-care (01) ==
LOC: ED 02:55
DX: S06.0X9A Concussion with loss of consciousness of unspecified duration, initial encounter (principal); S16.1XXA Strain of muscle, fascia and tendon at neck level, initial encounter; I10 Essential (primary) hypertension; Z86.73 Personal history of transient ischemic attack (TIA), and cerebral infarction without residual deficits; X58.XXXA Exposure to other specified factors, initial encounter; Y93.89 Activity, other specified; Y92.89 Other specified places as the place of occurrence of the external cause; Y99.8 Other external cause status
CPT/HCPCS: 70450; 72125; 99284

== ENCOUNTER 2019-01-04 01:08 | Emergency (ER) | payer MEDICAID ==
[~2019-01-04] VITALS: Ht 182.9 cm; Wt 87.0 kg
[2019-01-04 01:12] VITALS: BP 127/82
[2019-01-04 01:36] LABS: BASOPHILS # (AUTO) 0.01 x10^3/uL (0-0.1); BASOPHILS % (AUTO) 0 % (0-1); EOSINOPHILS # (AUTO) 0.06 x10^3/uL (0-0.4); EOSINOPHILS % (AUTO) 1 % (1-7); LYMPHOCYTES # (AUTO) 1.21 x10^3/uL (1-3.4); LYMPHOCYTES % (AUTO) 27 % (22-44); MD NO; MEAN CORPUSCULAR HEMOGLOBIN 33.2 pg (27.5-34.5); MEAN CORPUSCULAR HGB CONC 34.4 g/dL (33.2-36.2); MEAN CORPUSCULAR VOLUME 96.4 fL (81-97); MEAN PLATELET VOLUME 8.8 fL (7.4-10.4); MONOCYTES # (AUTO) 0.78 x10^3/uL (0.2-0.8); MONOCYTES % (AUTO) 17 % (2-9); NEUTROPHILS # (AUTO) 2.48 x10^3/uL (1.8-6.8); NEUTROPHILS % (AUTO) 55 % (42-75); PLATELET COUNT 108 x10^3/uL (130-400); RED BLOOD COUNT 3.58 x10^6/uL (4.38-5.82); RED CELL DISTRIBUTION WIDTH 18.8 % (9.4-14.8)
[2019-01-04 01:46] LABS: ANION GAP 11 mmol/L (5-15); CALCIUM 8.7 mg/dL (8.5-10.1); CHLORIDE 102 mmol/L (98-107); CREATININE 1.28 mg/dL (0.7-1.3)
--- NOTE | 2019-01-04 02:13 | NUR ---
PT WITH POSSIBLE SEIZURE AT [facility]. BS IN [facility]. STATES TAKES KEPPRA BUT HIS MEDS WERE STOLEN AT [facility]
--- NOTE | 2019-01-04 02:16 | NUR ---
PT STATES HE IS CAOLD AND HIS MUSCLES ARE TENSE, GIVEN WARM BLANKET
--- NOTE | 2019-01-04 03:05 | NUR ---
Patient/Caregiver given discharge instructions and they have confirmed that they understand the instructions. Patient ambulatory with steady gait.
== END 2019-01-04 03:32 | disposition home or self-care (01) ==
LOC: ED 02:02
DX: G40.909 Epilepsy, unspecified, not intractable, without status epilepticus (principal); I10 Essential (primary) hypertension; Z86.73 Personal history of transient ischemic attack (TIA), and cerebral infarction without residual deficits; Z86.19 Personal history of other infectious and parasitic diseases
CPT/HCPCS: 36415; 80048; 83735; 85025; 93005; 99284

== ENCOUNTER 2019-01-13 01:45 | Emergency (ER) | payer MEDICAID ==
[~2019-01-13] VITALS: Ht 190.5 cm; Wt 82.0 kg
[2019-01-13 02:58] VITALS: BP 125/81
== END 2019-01-13 03:00 | disposition home or self-care (01) ==
LOC: ED 02:16
DX: F32.9 Major depressive disorder, single episode, unspecified (principal); Z72.9 Problem related to lifestyle, unspecified; G40.909 Epilepsy, unspecified, not intractable, without status epilepticus; I10 Essential (primary) hypertension; Z86.73 Personal history of transient ischemic attack (TIA), and cerebral infarction without residual deficits
CPT/HCPCS: 99284

== ENCOUNTER 2019-02-24 07:15 | Emergency (ER) | payer MEDICAID ==
[~2019-02-24] VITALS: Ht 190.5 cm; Wt 84.0 kg
[2019-02-24] MEDS ORDERED: METOCLOPRAMIDE 5 MG/ML, 2ML IVPush ONE (08:00)
[2019-02-24] MEDS ORDERED: KETOROLAC 30 MG/1 ML IVPush ONE (08:00)
[2019-02-24] MEDS ORDERED: DIPHENHYDRAMINE 50 MG/ML, 1ML IV ONE (08:00)
--- NOTE | 2019-02-24 08:23 | NUR ---
PT. IS A & O X 4 WITH C/O ANDRADE PAIN X 4 DAYS. PT. STATES HE WAS ADMITTED AT [facility] X 4 DAYS FOR HIGH FEVER OF UNKNOWN ORIGIN. PT. STATES HE HAD VIRAL MENNINGITIS. PT. STATES HE HAS AN ELEVATED WBC. IV ACCESS ESTABLISHED. PT.'S LABS WERE DRAWN AND SENT. PT.'S PUPILS ARE KOBI. LUNGS ARE CTA. MM ARE PINK AND MOIST WITH PULSES +2 THROUGHOUT. PT. HAS THE SIDERAILS UP X [address] AND THE CALL LIGHT IN PLACE. PT.'S HOB IS ELEVATED GREATER THAN 30 DEGREES. PT. IS RESTING WITH THE CALL LIGHT IN PLACE. SIDERAILS REMAIN UP X 2. PT. WAS MEDICATED ORDERED.
[2019-02-24 08:28] LABS: ALBUMIN 2.7 g/dL (3.4-5.0); ANION GAP 13 mmol/L (5-15); CALCIUM 8.5 mg/dL (8.5-10.1); CHLORIDE 111 mmol/L (98-107)
[2019-02-24 08:29] LABS: MEAN CORPUSCULAR HEMOGLOBIN 33.9 pg (27.5-34.5); MEAN CORPUSCULAR HGB CONC 34.5 g/dL (33.2-36.2); MEAN CORPUSCULAR VOLUME 98.3 fL (81-97); MEAN PLATELET VOLUME 8.1 fL (7.4-10.4); PLATELET COUNT 65 x10^3/uL (130-400); RED BLOOD COUNT 2.87 x10^6/uL (4.38-5.82)
[2019-02-24] MEDS ORDERED: KETOROLAC 30 MG/1 ML ONE (08:31)
[2019-02-24] MEDS ORDERED: DIPHENHYDRAMINE 50 MG/ML, 1ML ONE (08:31)
[2019-02-24 08:32] LABS: ALANINE AMINOTRANSFERASE 33 U/L (12-78); ALKALINE PHOSPHATASE 70 U/L (45-117); BILIRUBIN,TOTAL 3.2 mg/dL (0.2-1.0); CREATININE 1.24 mg/dL (0.7-1.3); TOTAL PROTEIN 6.6 g/dL (6.4-8.2)
[2019-02-24] MEDS ORDERED: METOCLOPRAMIDE 5 MG/ML, 2ML ONE (08:32)
[2019-02-24 09:04] LABS: BAND#(MANUAL) 2.49 x10^3/uL; BANDS%(MANUAL) 19 % (0-7); LYMPH#(MANUAL) 0.26 x10^3/uL (1-3.4); LYMPHS% (MANUAL) 2 % (22-44); MD YES; MONOS#(MANUAL) 0.39 x10^3/uL (0.3-2.7); MONOS% (MANUAL) 3 % (2-9); SEG#(MANUAL) 9.96 x10^3/uL (1.8-6.8); SEGS% (MANUAL) 76 % (42-75)
[2019-02-24 09:08] LABS: <PLATELET ESTIMATE> DECREASED; <PLT MORPHOLOGY> NORMAL PLT MORPH
[2019-02-24 09:09] LABS: ANISOCYTOSIS 1+
--- NOTE | 2019-02-24 09:11 | NUR ---
PT.'S VITALS MONITORED. NS BOLUS INFUSING.
--- NOTE | 2019-02-24 09:12 | NUR ---
PT.'S BLOOD PRESSURE IS DECREASED, LABS SHOW PT. IS DEHYDRATED. NS BOLUS CONTINUES TO INFUSE.
[2019-02-24] MEDS ORDERED: SODIUM CHLORIDE 0.9% 1,000ML IVBOLUS ONE (09:30)
--- NOTE | 2019-02-24 09:40 | NUR ---
REPORT RECEIVED, CARE ASSUMED.
--- NOTE | 2019-02-24 10:27 | NUR ---
PT SLEEPING, AROUSES TO NAME, USED URINAL. IV INFUSING WITHOUT REDNESS/SWELLING. HEAD PAIN DECREASED TO 8/10 "ITS GETTING BETTER" DR FOWLER AT BEDSIDE TO RE-EVAL PT. WAITING FOR RECORDS FROM [facility]. NO OTHER NEEDS EXPRESSED AT THIS TIME.
--- NOTE | 2019-02-24 10:51 | NUR ---
PT AWAKE, IV INFUSING WITHOUT REDNESS/SWELLING. PT PROVIDED WITH PO FLUDS AND CRACKERS. URINAL AT BEDSIDE. NO OTHER NEEDS EXPRESSED AT THIS TIME.
--- NOTE | 2019-02-24 12:02 | NUR ---
PT AMB IN HALLS, GAIT STEADY. IV DC'D WITH CANNULA INTACT, REVIEWED DC INSTRUCTIONS WITH PT, UNDERSTANDING VERBALIZED. PT LEFT AMB, GAIT STEADY.
[2019-02-24 12:03] VITALS: BP 111/71
== END 2019-02-24 12:06 | disposition home or self-care (01) ==
LOC: ED 09:34
DX: G43.119 Migraine with aura, intractable, without status migrainosus (principal); K74.60 Unspecified cirrhosis of liver; R94.5 Abnormal results of liver function studies; F32.9 Major depressive disorder, single episode, unspecified
CPT/HCPCS: 36415; 80053; 85025; 96374; 96375; 99283; J1200; J1885; J2765; J7030

== ENCOUNTER 2019-02-24 23:05 | Emergency (ER) | payer MEDICAID ==
[~2019-02-24] VITALS: Ht 190.5 cm; Wt 82.0 kg
--- NOTE | 2019-02-24 23:25 | NUR ---
Dr. Akins at bedside to evaluate pt.
[2019-02-24] MEDS ORDERED: KETOROLAC 30 MG/1 ML IM ONE (23:30)
[2019-02-24] MEDS ORDERED: METOCLOPRAMIDE 5 MG/ML, 2ML IM ONE (23:30)
[2019-02-25] MEDS ORDERED: KETOROLAC 30 MG/1 ML ONE (00:03)
[2019-02-25] MEDS ORDERED: METOCLOPRAMIDE 5 MG/ML, 2ML ONE (00:03)
--- NOTE | 2019-02-25 00:22 | NUR ---
Pt medicated per MAR.
[2019-02-25 00:43] VITALS: BP 118/69
--- NOTE | 2019-02-25 00:44 | NUR ---
Patient/Caregiver given discharge instructions and they have confirmed that they understand the instructions. Patient ambulatory with steady gait.
== END 2019-02-25 00:45 | disposition home or self-care (01) ==
LOC: ED 23:29
DX: G43.119 Migraine with aura, intractable, without status migrainosus (principal); G40.909 Epilepsy, unspecified, not intractable, without status epilepticus; I10 Essential (primary) hypertension; Z86.73 Personal history of transient ischemic attack (TIA), and cerebral infarction without residual deficits; Z72.9 Problem related to lifestyle, unspecified
CPT/HCPCS: 96372; 99283; J1885; J2765

== ENCOUNTER 2019-09-23 01:13 | Emergency (ER) | payer MEDICAID ==
[~2019-09-23] VITALS: Ht 190.5 cm; Wt 88.5 kg
[2019-09-23] MEDS ORDERED: LORazepam 1MG TABLET ONE (02:09)
--- NOTE | 2019-09-23 02:12 | NUR ---
MRI SCREENING FORM COMPLETED AND FAXED TO RADIOLOGY. 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 PA INFORMED. PT MEDICATED PER DEC. PT THEN STATES LAST TIME HE REQUIRED GENERAL ANESTHESIA IN ORDER TO ACCOMPLISH MRI. PT WAS INFORMED TO ATTEMPT MRI WITHOUT. CONSULTED WHOM STATES NO GENERAL ANESTHESIA WILL BE DONE FOR THIS MRI. PT AWARE A UA IS NEEDED. PT GIVEN URINAL
[2019-09-23 02:14] LABS: ALANINE AMINOTRANSFERASE 36 U/L (12-78); ANION GAP 7 mmol/L (5-15); CALCIUM 8.3 mg/dL (8.5-10.1); CHLORIDE 113 mmol/L (98-107)
[2019-09-23 02:16] LABS: ALKALINE PHOSPHATASE 196 U/L (45-117); BILIRUBIN,TOTAL 1.7 mg/dL (0.2-1.0)
[2019-09-23] MEDS ORDERED: LORazepam 1MG TABLET PO ONE (02:30)
[2019-09-23 02:36] LABS: MEAN CORPUSCULAR HEMOGLOBIN 28.8 pg (27.5-34.5); MEAN CORPUSCULAR HGB CONC 33.2 g/dL (33.2-36.2); MEAN CORPUSCULAR VOLUME 86.8 fL (81-97); RED BLOOD COUNT 3.55 x10^6/uL (4.38-5.82); RED CELL DISTRIBUTION WIDTH 21.4 % (9.4-14.8)
--- NOTE | 2019-09-23 03:02 | NUR ---
PT TO MRI
[2019-09-23 03:09] LABS: MEAN PLATELET VOLUME 11.9 fL (7.4-10.4); PLATELET COUNT 93 x10^3/uL (130-400)
[2019-09-23 03:11] LABS: BASOPHILS # (AUTO) 0.02 x10^3/uL (0-0.1); BASOPHILS % (AUTO) 1 % (0-1); EOSINOPHILS # (AUTO) 0.06 x10^3/uL (0-0.4); EOSINOPHILS % (AUTO) 2 % (1-7); LYMPHOCYTES % (AUTO) 39 % (22-44); MD SCAN; MONOCYTES # (AUTO) 0.33 x10^3/uL (0.2-0.8); MONOCYTES % (AUTO) 13 % (2-9); NEUTROPHILS # (AUTO) 1.17 x10^3/uL (1.8-6.8); NEUTROPHILS % (AUTO) 45 % (42-75)
[2019-09-23 04:47] VITALS: BP 145/88
== END 2019-09-23 05:04 ==
LOC: ED 04:55
DX: G89.29 Other chronic pain (principal); R53.1 Weakness; M54.5 Low back pain; I10 Essential (primary) hypertension; G43.909 Migraine, unspecified, not intractable, without status migrainosus; G40.909 Epilepsy, unspecified, not intractable, without status epilepticus
CPT/HCPCS: 36415; 72148; 80053; 85025; 99284

== ENCOUNTER 2019-12-17 12:39 | Emergency (ER) | payer MEDICAID ==
--- NOTE | 2019-12-17 13:15 | NUR ---
NOTIFIED BY REG THAT PT HAS LEFT.
== END 2019-12-17 13:16 | disposition left against medical advice (07) ==
LOC: ED 13:10
DX: M25.571 Pain in right ankle and joints of right foot (principal); Z53.21 Procedure and treatment not carried out due to patient leaving prior to being seen by health care provider

== ENCOUNTER 2020-01-24 22:31 | Emergency (ER) | payer MEDICAID ==
[~2020-01-24] VITALS: Ht 190.5 cm; Wt 88.0 kg
--- NOTE | 2020-01-24 22:48 | NUR ---
BIB [facility] FROM HOME W CO GRADUAL ONSET OCCIPITAL ADNRADE, RADIATING TO TEMPLES AND TO NECK SINCE 1000. NECK TENDER TO PALPATION, RUE AND RLE WEAKNESS, SENSATION INTACT. +PHOTOPHOBIA, PHONOPHOBIA, CHANGES IN VISION "TUNNEL VISION" HX OF SIMILAR ANDRADE. NO IMPROVEMENT WITH [employer]. SOME RELIEF W HEAT PACK PROVIDED BY [facility]. PT ALSO CO FALL ON STAIRS AT 1200 SECONDARY TO DOUBLE VISION. ABRASION NOTED ABOVE R EYE, BLEEDING CONTROLLED. NO REDNESS/WARMTH OR DRAINAGE NOTED. FACE SYMMETRICAL, SPEECH CLEAR. PT AMBULATORY FROM [facility] TO [facility]. BP/SPO2/ECG MONITORING IN PLACE. NSR ON MONITOR.
--- NOTE | 2020-01-24 22:51 | NUR ---
DELAY IN EKG, PT IN IMAGING
[2020-01-24 22:52] LABS: BASOPHILS # (AUTO) 0.02 x10^3/uL (0-0.1); BASOPHILS % (AUTO) 1 % (0-1); EOSINOPHILS # (AUTO) 0.05 x10^3/uL (0-0.4); EOSINOPHILS % (AUTO) 1 % (1-7); LYMPHOCYTES % (AUTO) 42 % (22-44); MD NO; MEAN CORPUSCULAR HEMOGLOBIN 28.1 pg (27.5-34.5); MEAN CORPUSCULAR HGB CONC 33.2 g/dL (33.2-36.2); MEAN CORPUSCULAR VOLUME 84.7 fL (81-97); MEAN PLATELET VOLUME 8.2 fL (7.4-10.4); MONOCYTES # (AUTO) 0.27 x10^3/uL (0.2-0.8); MONOCYTES % (AUTO) 7 % (2-9); NEUTROPHILS # (AUTO) 1.92 x10^3/uL (1.8-6.8); NEUTROPHILS % (AUTO) 50 % (42-75); PLATELET COUNT 107 x10^3/uL (130-400); RED BLOOD COUNT 4.36 x10^6/uL (4.38-5.82); RED CELL DISTRIBUTION WIDTH 18.4 % (9.4-14.8)
[2020-01-24 23:03] LABS: ALBUMIN 3.3 g/dL (3.4-5.0); ANION GAP 8 mmol/L (5-15); CALCIUM 7.8 mg/dL (8.5-10.1); CHLORIDE 112 mmol/L (98-107); CREATININE 0.91 mg/dL (0.7-1.3)
--- NOTE | 2020-01-24 23:05 | NUR ---
EKG COMPLETED BY TECH.
--- NOTE | 2020-01-24 23:05 | NUR ---
Adebayo colon in ED - 01/24/20 at 2312 by [facility] EKG COMPLETED BY TECH. SNEED IN AFIB WHICH HE REPORTS IS BASELINE
[2020-01-24] MEDS ORDERED: ACETAMINOPHEN 500 MG TABLET PO ONE (23:30)
[2020-01-24] MEDS ORDERED: KETOROLAC 30 MG/1 ML IVPush ONE (23:30)
[2020-01-24] MEDS ORDERED: ONDANSETRON 2MG/ML, 2ML IVPush ONE (23:30)
[2020-01-24] MEDS ORDERED: KETOROLAC 30 MG/1 ML ONE (23:35)
[2020-01-24] MEDS ORDERED: ACETAMINOPHEN 500 MG TABLET ONE (23:35)
[2020-01-24] MEDS ORDERED: ONDANSETRON ODT 4 MG ONE (23:35)
--- NOTE | 2020-01-24 23:41 | NUR ---
PT MEDICATED PER EMAR FOR CONTINUED ANDRADE, 06/22
--- NOTE | 2020-01-25 00:09 | NUR ---
PT REPORTS NO IMPROVEMENT IN PAIN, "NOW IT REALLY FUCKING HURTS". ERP AWARE.
[2020-01-25] MEDS ORDERED: PROCHLORPERAZINE 5 MG/ML, 2ML IM ONE (00:30)
[2020-01-25] MEDS ORDERED: DIPHENHYDRAMINE 25 MG CAPSULE PO ONE (00:30)
[2020-01-25] MEDS ORDERED: DIPHENHYDRAMINE 25 MG CAPSULE ONE (00:33)
[2020-01-25] MEDS ORDERED: PROCHLORPERAZINE 5 MG/ML, 2ML ONE (00:33)
--- NOTE | 2020-01-25 00:44 | NUR ---
PT MEDICATED PER EMAR FOR CONTINUED PAIN, 04/21
[2020-01-25 01:20] VITALS: BP 101/62
--- NOTE | 2020-01-25 01:23 | NUR ---
not available to print d/c instructions. Pt informed of this, pt elected to be discharged without paperwork. Pt given cab voucher at time of discharge.
== END 2020-01-25 01:25 | disposition home or self-care (01) ==
LOC: ED 23:36
DX: S00.81XA Abrasion of other part of head, initial encounter (principal); S09.90XA Unspecified injury of head, initial encounter; R51 Headache; I11.9 Hypertensive heart disease without heart failure; R94.31 Abnormal electrocardiogram [ECG] [EKG]; M54.2 Cervicalgia; H53.149 Visual discomfort, unspecified; G40.909 Epilepsy, unspecified, not intractable, without status epilepticus; W18.30XA Fall on same level, unspecified, initial encounter; Y93.89 Activity, other specified; Y92.89 Other specified places as the place of occurrence of the external cause; Y99.8 Other external cause status
CPT/HCPCS: 36415; 70450; 72125; 80048; 80307; 82040; 85025; 93005; 96372; 96374; 96375; 99285; J0780; J1885; J2405; Q0163

== ENCOUNTER 2021-06-21 04:43 | Emergency (ER) | payer MEDICAID ==
[~2021-06-21] VITALS: Ht 190.5 cm; Wt 85.0 kg
[~2021-06-21 04:43] MED LIST changes: -CLIN300C8 PO; +CLIN300C9 PO; -FOLI-17 PO; +FOLI1TAB32 PO
--- NOTE | 2021-06-21 07:14 | NUR ---
To CT via [facility].
--- NOTE | 2021-06-21 07:24 | NUR ---
Pt back from CT, labs have been drawn.
[2021-06-21 07:37] LABS: ANION GAP 8 mmol/L (5-15); CALCIUM 8.1 mg/dL (8.5-10.1); CHLORIDE 113 mmol/L (98-107); CREATININE 0.63 mg/dL (0.7-1.3)
--- NOTE | 2021-06-21 08:50 | NUR ---
Pt dc fully ambulatory steady gait, able to navigate the community safely. VSS. Pt verbalizes understanding. Will f/u with his pcp.
[2021-06-21 08:51] VITALS: BP 135/71
== END 2021-06-21 09:03 | disposition home or self-care (01) ==
LOC: ED 08:45
DX: S06.0X0A Concussion without loss of consciousness, initial encounter (principal); S00.93XA Contusion of unspecified part of head, initial encounter; S80.02XA Contusion of left knee, initial encounter; F10.20 Alcohol dependence, uncomplicated; Y90.0 Blood alcohol level of less than 20 mg/100 ml; I10 Essential (primary) hypertension; G40.909 Epilepsy, unspecified, not intractable, without status epilepticus; Z86.73 Personal history of transient ischemic attack (TIA), and cerebral infarction without residual deficits; Z90.89 Acquired absence of other organs; Z90.49 Acquired absence of other specified parts of digestive tract; Z88.0 Allergy status to penicillin; Z88.5 Allergy status to narcotic agent; Z88.9 Allergy status to unspecified drugs, medicaments and biological substances; W18.30XA Fall on same level, unspecified, initial encounter; Y93.89 Activity, other specified; Y92.89 Other specified places as the place of occurrence of the external cause; Y99.8 Other external cause status
CPT/HCPCS: 36415; 70450; 80048; 80320; 99284; G0480